=== PATIENT | male | born 1975 | race Caucasian/White ===

== ENCOUNTER 2016-05-18 17:14 | Emergency (ER) | payer OTHER ==
[~2016-05-18] VITALS: Ht 182.9 cm; Wt 83.9 kg
[2016-05-18 17:20] VITALS: BP 160/76
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
[2016-05-18] MEDS ORDERED: HYDROCODON/IBUPROFEN 7.5/200MG TABLET. ONE (18:09)
--- NOTE | 2016-05-18 18:20 | RAD ---
PROCEDURE CT scan of the head without contrast 05/18/2016 HISTORY Head injury earlier today. Headache. TECHNIQUE Unenhanced contiguous, 5 millimeter axial sections were obtained through the head. One or more of the following individualized dose reduction techniques were utilized for this study: 1. Automated exposure control. 2. Adjustment of the mA and/or kV according to patient size. 3. Use of iterative reconstruction technique. FINDINGS The ventricles and sulci are within normal limits in size and configuration. No area of abnormal attenuation is seen involving the brain parenchyma. No extra-axial fluid collection is seen. No skull fracture is noted. Mild to moderate mucosal thickening is seen involving both maxillary sinuses. IMPRESSION No acute intracranial abnormality is seen. Electronically signed by: Avi Cross MD (May 18, 2016 18:18:24)
[2016-05-18] MEDS ORDERED: HYDROCODON/IBUPROFEN 7.5/200MG TABLET. PO ONE (18:30)
[2016-05-18] MEDS ORDERED: CEPH-264 PO (18:40)
[2016-05-18] MEDS ORDERED: FLUT9.9S NS (18:41)
[2016-05-18] MEDS ORDERED: PHEN15SP3 NS (18:41)
== END 2016-05-18 18:55 | disposition home or self-care (01) ==
LOC: ER 17:14
DX: S09.8XXA Other specified injuries of head, initial encounter (principal); W22.8XXA Striking against or struck by other objects, initial encounter; Y93.89 Activity, other specified; Y99.8 Other external cause status; Y92.89 Other specified places as the place of occurrence of the external cause
CPT/HCPCS: 70450; 99284-25

== ENCOUNTER → 2016-06-01 | Outpatient (CLI) | payer OTHER ==
[2016-05-18 17:20] VITALS: BP 160/76
[~2016-06-01] MED LIST: CEPH-264 PO; FLUT9.9S NS; PHEN15SP3 NS
--- NOTE | 2016-06-01 13:50 | RAD ---
Indication intermittent testicular pain. Grayscale color Doppler and spectral imaging was performed. The examination was targeted to the scrotum. The right testicle measures 3.6 x 3.6 x 2.1 cm and appears normal. No mass is seen. There is normal flow. There is a small hydrocele. The epididymis appears unremarkable. A varicocele was also noted. The left testicle measures 2.9 x 2.9 x 1.9 cm and also appears normal. There is normal flow. There is a small hydrocele similar to the contralateral side. The epididymis appears unremarkable. IMPRESSION: Small bilateral hydroceles. Right varicocele.
== END | disposition home or self-care (01) ==
LOC: US 10:44
PROVIDERS: ATTEND Family Medicine
DX: I86.1 Scrotal varices (principal); N43.3 Hydrocele, unspecified
CPT/HCPCS: 76870

== ENCOUNTER → 2018-01-13 | Outpatient (CLI) | payer OTHER ==
[~2018-01-13] MED LIST changes: +PHEN15SP11 NS; -PHEN15SP3 NS
--- NOTE | 2018-01-13 11:13 | RAD ---
Right second toe, 2 views, 01/13/2018: HISTORY: Pain There is moderate degenerative change at the DIP joint with moderate marginal spurring. No recent fracture or dislocation is evident. Electronically signed by: Dilan Oseguera MD (01/13/2018 11:09 AM) [facility]
== END | disposition home or self-care (01) ==
LOC: PMG 08:59
PROVIDERS: ATTEND Family Medicine
DX: M19.071 Primary osteoarthritis, right ankle and foot (principal)
CPT/HCPCS: 73660

== ENCOUNTER 2020-12-27 14:30 | Emergency (ER) | payer OTHER ==
[~2020-12-27] VITALS: Ht 182.9 cm; Wt 90.5 kg
[2020-12-27 14:40] VITALS: BP 114/95
[2020-12-27] MEDS ORDERED: DIPH,PERTUSS(ACELL),TET VAC/PF 0.5 ML SYRINGE. VAX IM ONE (14:45)
--- NOTE | 2020-12-27 14:52 | PHYS DOC ---
Past History Past Medical History: No Pertinent History (JARROD CHAHAL APRN) Past Surgical History: No Surgical History (JARROD CHAHAL APRN) Alcohol Use: Rarely Drug Use: None (JARROD CHAHAL APRN) Adult General Chief Complaint Chief Complaint: LACERATION/AVULSION HPI HPI Patient is a 45-year-old male patient presenting to the ED today with left eye laceration, patient states he tripped on a tree stump and cut himself with a chainsaw. (JARROD CHAHAL APRN) Review of Systems Review of Systems Constitutional: Denies fever or chills [] Musculoskeletal: Denies back pain or joint pain [] Integument: Reports left thigh laceration Neurologic: Denies headache, focal weakness or sensory changes [] All other systems were reviewed and found to be within normal limits, except as documented in this note. (JARROD CHAHAL APRN) Current Medications Current Medications Current Medications Medications (Trade) Dose Ordered Sig/Young Start Time Stop Time Status Last Admin Dose Admin Diphtheria/ Pertussis/Tetanus Vacc (ADACEL TDap SYRINGE) 0.5 ml ONCE ONCE 12/27/20 14:45 12/27/20 14:46 UNV (JARROD CHAHAL APRN) Allergies Allergies Allergies Coded Allergies Type Severity Reaction Last Updated Verified No Known Drug Allergies 05/18/16 No (JARROD CHAHAL APRN) Physical Exam Physical Exam Constitutional: Well developed, well nourished, no acute distress, non-toxic appearance. [] Skin: Left ventral thigh with two skin avulsion type lacerations next to each other one is 3X0.5 cm the other is 2X0.3 cm. The skin is gone on both lacerations. There is no tendon involvement. Full range of motion to the left lower extremity. +2 left pedal pulse. Cap refill less than 2 seconds in the left lower extremity. Sensation intact to the left lower extremity. Back: No tenderness, no CVA tenderness. [] Extremities: No tenderness, no cyanosis, no clubbing, ROM intact, no edema. [] Neurologic: Alert and oriented X 3, normal motor function, normal sensory function, no focal deficits noted. [] Psychologic: Affect normal, judgement normal, mood normal. [] (JARROD CHAHAL APRN) EKG EKG [] (MUTUNGJARROD Chiu SALES DEVELOPER) Radiology/Procedures Radiology/Procedures [] (TYLERJARROD Chiu SALES DEVELOPER) Heart Score C/O Chest Pain: N/A Risk Factors: Risk Factors: DM, Current or recent (<one month) smoker, HTN, HLP, family history of CAD, obesity. Risk Scores: Risk Factors: DM, Current or recent (<one month) smoker, HTN, HLP, family history of CAD, obesity. (JARROD CHAHAL APRN) Course & Med Decision Making Course & Med Decision Making Pertinent Labs and Imaging studies reviewed. (See chart for details) This is a 45-year-old male patient presenting to the ED today with left eyelid laceration. The skin is gone on the laceration sites. There is no need for stitches. Lacerations were cleaned and covered in the ED. Recommended Neosporin to the area twice a day. Provided return precautions. Tetanus updated. Discharged in stable condition (JARROD CHAHAL SALES DEVELOPER) Course & Med Decision Making I was the Attending physician on the above date of service of this patient. This patient was evaluated, examined, treated, and dispositioned from the emergency department by the mid-level practitioner. Although I was working at the time , no assistance was requested. Electronically signed, Marcela Espino DO (MARCELA ESPINO DO) Rico Disclaimer Rico Disclaimer This electronic medical record was generated, in whole or in part, using a voice recognition dictation system. (TYLERJARROD Chiu SALES DEVELOPER) Departure Departure: Impression: Primary Impression: Laceration of lower limb Disposition: 01 HOME / SELF CARE / HOMELESS Condition: STABLE Referrals: RUTH TADEO (PCP) follow up in one week Patient Instructions: Laceration Care, Adult Additional Instructions: You have lacerations to the left thigh, you can wash the area daily once or twice a day, keep the area clean and dry. Apply Neosporin to the area twice a day for 7 days. If the area is not bleeding or draining in the next 48 hours you can leave it open to air while at home and keep it covered while at work. You were given tetanus shot in the ED. Monitor the signs of infection including but not limited to increased redness, warmth, yellow drainage from the area or any other concerning symptoms or return to the ED. Problem Qualifiers Primary Impression: Laceration of lower limb Encounter type: initial encounter Laterality: left Qualified Codes: S81.812A - Laceration without foreign body, left lower leg, initial encounter JARROD CHAHAL APRN Dec 27, 2020 14:52 MARCELA ESPINO DO Dec 28, 2020 06:56
== END 2020-12-27 15:10 | disposition home or self-care (01) ==
LOC: ER 14:30
DX: S71.112A Laceration without foreign body, left thigh, initial encounter (principal); W18.41XA Slipping, tripping and stumbling without falling due to stepping on object, initial encounter; Y93.89 Activity, other specified; Y92.89 Other specified places as the place of occurrence of the external cause; Y99.8 Other external cause status
CPT/HCPCS: 90471; 90715; 99283